=== PATIENT | female | born 1990 | race African-American/Black ===

== ENCOUNTER 2019-06-18 21:41 | Inpatient (IN) ==
[2019-06-18] MEDS ORDERED: MEPERIDINE 50 MG/1 ML VIAL IV PRN (21:57)
[2019-06-18] MEDS ORDERED: LACTATED RINGERS 500 ML IV PRN (21:57)
[2019-06-18] MEDS ORDERED: ONDANSETRON 4 MG/2 ML VIAL IV PRN (21:57)
[2019-06-18 22:27] LABS: Basophils % 0.4 % (0.0-0.8); Eosinophils # 0.1 10*3/uL (0.0-0.87); Eosinophils % 0.6 % (0.00-10.9); Hematocrit 34.4 VOL% (35.7-47.0); Hemoglobin 11.2 GM/DL (12.0-16.0); Immature Granulocytes % 0.6 %; Immature Granulocytes Absolute 0.05 #; Lymphocytes # 1.9 10*3/uL (1.4-4.0); Lymphocytes % 22.6 % (21.3-54.2); Mean Corpuscular HGB Conc 32.6 GM/DL (32-36); Mean Corpuscular Volume 94.8 FL (87-102); Mean Platelet Volume 10.9 FL (9.6-12.0); Monocytes % 10.1 % (1.7-12.7); Neutrophils % 65.7 % (38.7-73.9); Platelet Count 216 T/CUMM (130-400); Red Blood Count 3.63 MC/CUMM (3.8-5.5); Red Cell Distribution Width 16.1 % (9.3-17.3); White Blood Count 8.2 T/CUMM (4-12)
[2019-06-18 22:48] LABS: Albumin 2.7 G/DL (3.4-5.0); Bilirubin,Total 0.4 MG/DL (0.2-1.0); Calcium 8.6 MG/DL (8.5-10.1); Osmolality,Calculated 270.8 MOS/KG (273-304); Total Protein 6.8 G/DL (6.4-8.3)
[2019-06-18] MEDS: BUTORPHANOL 2 MG/ML VIAL IV PRN (23:48)
[2019-06-19] MEDS ORDERED: AMPICILLIN INJ 2,000 MG in SODIUM CHLORIDE 0.9% 100 ML IV ONE
[2019-06-19] MEDS: AMPICILLIN INJ 1,000 MG in SODIUM CHLORIDE 0.9% 100 ML IV SCH ×2 (03:57→08:35)
[2019-06-19] MEDS: LACTATED RINGERS 1,000 ML IV SCH ×2 (03:57→06:06)
[2019-06-19] MEDS ORDERED: OXYTOCIN/LR 20 UNIT/1,000 ML BAG IV SCH (04:00)
[2019-06-19] MEDS: BUTORPHANOL 2 MG/ML VIAL IV PRN ×2 (04:37→07:44)
[2019-06-19] MEDS ORDERED: METHYLERGONOVINE 0.2 MG/1 ML AMP ONE (08:05)
[2019-06-19] MEDS ORDERED: TRANEXAMIC ACID 1,000 MG/10 ML VIAL ONE (08:05)
[2019-06-19] MEDS ORDERED: miSOPROStoL 200 MCG TABLET ONE (08:05)
[2019-06-19] MEDS ORDERED: LIDOCAINE 1% 50 ML VIAL ONE (08:06)
[2019-06-19] MEDS ORDERED: CARBOPROST TROMETHAMINE 250 MCG/ML AMP IM ONE (08:06)
[2019-06-19] MEDS ORDERED: HYDROCORTISONE 2.5% RECTAL CREAM 30 GM TUBE TOP PRN (09:49)
[2019-06-19] MEDS ORDERED: WITCH HAZEL PADS 100/JAR TOP PRN (09:49)
[2019-06-19] MEDS ORDERED: LANOLIN 50% CREAM 0.3 OZ TUBE TOP PRN (09:49)
[2019-06-19] MEDS ORDERED: DIPH/TET/ACEL PERT BOOSTER VACCINE 0.5 ML VIAL IM ONE (09:49)
[2019-06-19] MEDS ORDERED: ACETAMINOPHEN 325 MG TABLET PO PRN (09:49)
[2019-06-19] MEDS ORDERED: RHO(D) IMMUNE GLOBULIN 300 MCG SYRINGE IM ONE (09:49)
[2019-06-19] MEDS ORDERED: oxyCODONE/ACETAMINOPHEN 5-325 MG TABLET PO PRN (09:49)
[2019-06-19] MEDS ORDERED: BISACODYL 10 MG SUPP RECTAL PRN (09:49)
[2019-06-19] MEDS ORDERED: ONDANSETRON 4 MG/2 ML VIAL IV PRN (09:49)
[2019-06-19] MEDS ORDERED: MEASLES/MUMPS/RUBELLA VACCINE 0.5 ML VIAL SUBCUT ONE (09:49)
[2019-06-19] MEDS ORDERED: OXYTOCIN/LR 20 UNIT/1,000 ML BAG IV ONE ×2 (09:49→11:15)
[2019-06-19] MEDS ORDERED: BENZOCAINE 20%/MENTHOL 0.5% SPRAY 56 GM CAN TOP PRN (09:49)
[2019-06-19] MEDS: IBUPROFEN 800 MG TABLET PO PRN ×2 (13:02→19:39)
[2019-06-19] MEDS: DOCUSATE SODIUM 100 MG CAPSULE PO SCH ×2 (19:40→23:08)
[2019-06-20] MEDS: IBUPROFEN 800 MG TABLET PO PRN ×2 (03:32→17:41)
[2019-06-20 06:43] LABS: Basophils % 0.2 % (0.0-0.8); Eosinophils # 0.1 10*3/uL (0.0-0.87); Eosinophils % 0.6 % (0.00-10.9); Hematocrit 30.3 VOL% (35.7-47.0); Hemoglobin 9.9 GM/DL (12.0-16.0); Immature Granulocytes % 0.5 %; Immature Granulocytes Absolute 0.05 #; Lymphocytes # 2.2 10*3/uL (1.4-4.0); Lymphocytes % 20.5 % (21.3-54.2); Mean Corpuscular HGB Conc 32.7 GM/DL (32-36); Mean Corpuscular Volume 95.3 FL (87-102); Mean Platelet Volume 11.7 FL (9.6-12.0); Monocytes % 8.9 % (1.7-12.7); Neutrophils % 69.3 % (38.7-73.9); Platelet Count 193 T/CUMM (130-400); Red Blood Count 3.18 MC/CUMM (3.8-5.5); Red Cell Distribution Width 16.1 % (9.3-17.3); White Blood Count 10.9 T/CUMM (4-12)
[2019-06-20] MEDS: DOCUSATE SODIUM 100 MG CAPSULE PO SCH ×2 (09:55→20:43)
[2019-06-20] MEDS: oxyCODONE/ACETAMINOPHEN 5-325 MG TABLET PO PRN ×2 (17:41→23:07)
[2019-06-21 08:27] VITALS: BP 122/64
[2019-06-21] MEDS ORDERED: FUROSEMIDE 40 MG TABLET PO ONE (09:20)
[2019-06-21] MEDS: DOCUSATE SODIUM 100 MG CAPSULE PO SCH (09:30)
== END 2019-06-21 11:45 | disposition home or self-care (01) | DRG 560 ==
LOC: N.LDOUT 21:41 → N.LD 21:43 → N.OB 06-19 16:00
PROVIDERS: ADMIT Specialist; ATTEND Specialist